=== PATIENT | female | born 1945 | race American Indian/Alaskan Native ===

== ENCOUNTER 2017-11-04 09:39 | Emergency (ER) | payer MEDICARE ==
[2017-11-04 09:50] VITALS: BP 154/69
--- NOTE | 2017-11-04 11:06 | Emergency Department Report ---
Minor Respiratory - HPI Chief Complaint: Upper Respiratory Infection Stated Complaint: CP W/ COUGH Time Seen by Provider: 11/04/17 10:43 Duration: 3 weeks Pain Location: Nose (congestion), Chest (chest tightness) Severity: moderate Minor Respiratory: Yes Rhinorrhea, Yes Able to Tolerate Fluids, Yes Cough, Yes Chest Pain (chest tightness), Yes Shortness of Breath, No Sore Throat, No Ear Pain, No Sick Contacts, No Hemoptysis, No Fever Other History: This is a 72-year-old female that presents with chest tightness and productive cough for 3 weeks. Patient reports going to primary care provider 2 weeks ago and diagnosed with bronchitis and sinusitis. She was started on ampicillin, cough syrup with codeine, and Tessalon Perles. Patient reports feeling a little bit better the first week taken medication and shortly symptoms persist. Denies recent travel or being exposed to sick contacts. She is currently taking Mucinex DM with no improvement of symptoms. She did experience increased coughing caused shortness of breath. Denies fever, sick contacts, recent travel, nausea or vomiting, abdominal pain, and sinus pressure. ED Review of Systems ROS: Stated complaint: CP W/ COUGH Other details as noted in HPI Constitutional: denies: chills, fever ENT: congestion. denies: ear pain, throat pain, dental pain Respiratory: cough, shortness of breath. denies: wheezing Cardiovascular: denies: chest pain, palpitations, syncope Gastrointestinal: denies: abdominal pain, nausea, vomiting, diarrhea Musculoskeletal: denies: back pain, joint swelling, arthralgia, myalgia Neurological: denies: headache, weakness, paresthesias Psychiatric: denies: anxiety, depression ED Past Medical Hx - Past Medical History Hx Hypertension: Yes Hx Diabetes: Yes Additional medical history: Brain aneurysm x3, Hypothroidism - Surgical History Additional Surgical History: Surgery(Brain) 1 Aneyrysm removed in 2015 - Social History Smoking Status: Current Every Day Smoker Substance Use Type: None - Medications Home Medications: Home Medications Medication Instructions Recorded Confirmed Last Taken Type Clopidogrel Bisulfate 75 mg DAILY 08/13/17 08/13/17 Unknown History Diclofenac Sodium ER 2 g TP BID 08/13/17 08/13/17 Unknown History Fluticasone Furoate [Flonase 27.5 mcg NS DAILY 08/13/17 08/13/17 Unknown History Sensimist] Hydralazine HCl 50 mg PO TID 08/13/17 08/13/17 Unknown History Hydrochlorothiazide 25 mg PO DAILY 08/13/17 08/13/17 Unknown History Levothyroxine Sodium 137 mcg PO DAILY 08/13/17 08/13/17 Unknown History Lisinopril [Zestril] 40 mg PO DAILY 08/13/17 08/13/17 Unknown History Loratadine 10 mg PO DAILY 08/13/17 08/13/17 Unknown History Mirtazapine 15 mg PO DAILY 08/13/17 08/13/17 Unknown History Mirtazapine 15 mg PO DAILY 08/13/17 08/13/17 Unknown History [place]-3 Acid Ethyl Esters 1 gm PO BID 08/13/17 08/13/17 Unknown History Omeprazole 40 mg PO BID 08/13/17 08/13/17 Unknown History Paroxetine HCl 40 mg PO DAILY 08/13/17 08/13/17 Unknown History Paroxetine HCl 40 mg PO DAILY 08/13/17 08/13/17 Unknown History Pregabalin [Lyrica] 100 mg PO BID 08/13/17 08/13/17 Unknown History Tramadol HCl [Conzip 25 MG IR + 75 50 tab PO Q6HR 08/13/17 08/13/17 Unknown History MG XR CAP] amLODIPine 10 mg PO DAILY 08/13/17 08/13/17 Unknown History cloNIDine 0.3 mg TRANSDERMA 7XD 08/13/17 08/13/17 Unknown History Levothyroxine [Synthroid] 25 mcg PO DAILY@0600 tablet 08/14/17 Unknown Rx Atorvastatin Calcium [Lipitor] 40 mg PO QHS #30 tablet 08/15/17 Unknown Rx Metformin HCl 1,000 mg PO BID #60 08/15/17 08/13/17 Unknown Rx Metoprolol SUCCINATE ER TAB 200 mg PO DAILY #30 08/15/17 Unknown Rx ALBUTEROL Inhaler [ProAir HFA 1 puff IH Q6H PRN #1 inha 11/04/17 Unknown Rx Inhaler] Benzonatate 200 mg PO TID PRN #30 capsule 11/04/17 Unknown Rx Minor Respiratory Exam - Exam General: Vital signs noted. No distress. Alert and acting appropriately. HEENT: Yes Moist Mucous Membranes, Yes Rhinorrhea (turbinates mildly congested with clear discharge), No Pharyngeal Erythema, No Pharyngeal Exudates, No Conjuctival Injection, No Frontal Tenderness, No Maxillary Tenderness Ear: Neither TM Bulge, Neither TM Erythema, Neither EAC Pain, Neither EAC Discharge Neck: Yes Supple, No Adenopathy Lungs: Yes Good Air Exchange, Yes Cough, No Wheezes, No Ronchi, No Stridor, No Labored Respirations, No Retractions, No Use of Accessory Muscles, No Other Abnormal Lung Sounds Heart: Yes Regular, No Murmur Abdomen: Yes Normal Bowel Sounds, No Tenderness, No Peritoneal Signs Skin: No Rash, No Edema Neurologic: Alert and oriented, no deficits. Musculoskeletal: Unremarkable. ED Course Vital Signs 11/04/17 09:44 Temperature 98.6 F Pulse Rate 86 Respiratory 16 Rate Blood Pressure 154/69 O2 Sat by Pulse 98 Oximetry ED Medical Decision Making - Radiology Data Radiology results: report reviewed ROUTINE CHEST, TWO VIEWS: HISTORY: Cough, chest tightness. The trachea, heart, mediastinal contour, lung cotton and bony thorax are unremarkable. No significant change since 08/13/17. IMPRESSION: Unremarkable chest x-ray. - Medical Decision Making 72-year-old -[place] female presents with productive cough and chest tightness for 2 weeks after bronchitis infection. Patient examined by me and stable. No distress noted. Vitals stable. History of diabetes type 2, hypertension, and hypothyroidism. Obtained chest x-ray and reevaluate by radiologist. No acute cardiopulmonary findings. Review results with patient. Will start benzonatate and albuterol inhaler for post viral cough. Discharged home. Encouraged to do supportive care for URI. Follow-up with primary care provider in 2-3 days. Critical care attestation.: If time is entered above; I have spent that time in minutes in the direct care of this critically ill patient, excluding procedure time. ED Disposition Clinical Impression: Post-viral cough syndrome, Chest tightness, Cough productive of clear sputum Disposition: DC-01 TO HOME OR SELFCARE Is pt being admited?: No Does the pt Need Aspirin: No Condition: Stable Instructions: Acute Cough (ED), Upper Respiratory Infection (ED) Additional Instructions: Increase fluid intake and rest. Wash hands frequently. F/U with Primary Care Provider in 2-3 days. Return to ER if fever, SOB, or difficulty breathing after 48 hours of supportive care. Prescriptions: ALBUTEROL Inhaler [ProAir HFA Inhaler] 1 puff IH Q6H PRN #1 inha PRN Reason: Shortness Of Breath Benzonatate 200 mg PO TID PRN #30 capsule PRN Reason: Cough Referrals: CHELSEA LEAVITT MD [Primary Care Provider] - 3-5 Days Time of Disposition: 12:18 Print Language: SETS[place]
--- NOTE | 2017-11-04 11:40 | XRay Report ---
ROUTINE CHEST, TWO VIEWS: HISTORY: Cough, chest tightness. The trachea, heart, mediastinal contour, lung cotton and bony thorax are unremarkable. No significant change since 08/13/17. IMPRESSION: Unremarkable chest x-ray.
== END 2017-11-04 12:25 | disposition home or self-care (01) ==
LOC: ED 09:39
DX: B34.9 Viral infection, unspecified (principal); R07.89 Other chest pain; R05 Cough; E11.9 Type 2 diabetes mellitus without complications; I10 Essential (primary) hypertension; E03.9 Hypothyroidism, unspecified; F17.200 Nicotine dependence, unspecified, uncomplicated
CPT/HCPCS: 71046